=== PATIENT | male | born 1990 | race Caucasian/White ===

== ENCOUNTER → 2017-08-03 | Outpatient (CLI) | payer OTHER ==
--- NOTE | 2017-08-03 08:14 | DIAGNOSTIC IMAGING REPORT ---
LUMBAR SPINE W/O CONTRAST CLINICAL HISTORY: 26 years-old Male with RADICULOATHY, LUMBAR REGION. Subacute low back pain with prior trauma with radicular symptoms of the bilateral lower extremities COMPARISON: None. TECHNIQUE: Multiplanar, multi sequence MRI of the lumbar spine was performed without intravenous contrast. FINDINGS: No focal bone marrow edema, acute fracture or subluxation. 5 mm synovial cyst of the left L3-L4 facet. 6 mm synovial facet is seen adjacent to the left L5-S1 facet. Discogenic degenerative changes seen at L4-L5 and L5-S1 as below. Signal within the spinal cord appears normal. Cauda equina are within normal limits. The imaged paraspinal, intra-abdominal and intrapelvic structures demonstrate no acute abnormality. No pathologic adenopathy or aortic aneurysm identified. T12-L1: No central canal or neural foraminal stenosis. L1-L2: No central canal or neural foraminal stenosis. L2-L3: No central canal or neural foraminal stenosis. L3-L4: Mild intervertebral disc space narrowing with disc desiccation. No central canal or foraminal narrowing. L4-L5: Mild intervertebral disc space narrowing with disc desiccation. Small circumferential annular disc bulge is noted in conjunction with superimposed right paracentral/right lateral recess disc extrusion which measures 1.4 x 0.6 x 1.3 cm in transverse, AP and craniocaudal dimensions respectively. This extends 3 mm superior to the inferior endplate of L4, abutting and displacing the right L5 nerve root and causes mild central canal, severe right lateral recess and mild bilateral foraminal narrowing. L5-S1: Mild intervertebral disc space narrowing with disc desiccation. Small posterior disc bulge with annular fissure and broad-based central disc protrusion which flattens the ventral thecal sac and contributes to mild bilateral foraminal narrowing. No significant central canal stenosis. IMPRESSION: 1. Discogenic degenerative changes at L4-L5 with small circumferential annular disc bulge and right paracentral/right lateral recess extrusion causes mild central canal, severe right lateral recess and mild bilateral foraminal narrowing abutting and displacing the right L5 nerve root. 2. Small posterior disc bulge with annular fissure and broad-based central disc protrusion at L5-S1 contributes to mild bilateral foraminal narrowing without significant central canal stenosis. 3. Mild intervertebral disc space narrowing with disc desiccation at L3-L4. The above report was generated using voice recognition software. It may contain grammatical, syntax or spelling errors. Electronically signed by: Baljeet Pace M.D. 08/03/2017 8:13 AM Dictated Date/Time: 08/03/2017 8:01 AM
== END | disposition home or self-care (01) ==
LOC: C.MRI 07:26
PROVIDERS: ATTEND Family Medicine
DX: M54.16 Radiculopathy, lumbar region (principal)

== ENCOUNTER → 2017-09-07 | Day surgery (SDC) | payer OTHER, BC ==
[2017-08-21 12:54] VITALS: Ht 182.9 cm; Wt 104.5 kg
[~2017-09-07] VITALS: Ht 182.9 cm; Wt 104.5 kg
[~2017-09-07] MED LIST: IOPAMIDOL INJ 61% 15 ML VIAL ONE; LIDOCAINE HCL 1% MPF 5 ML VIAL ONE; MULT-506 PO; SODIUM CHLORIDE 0.9% INJ 10 ML VIAL ONE
--- NOTE | 2017-09-07 13:05 | History & Physical Bridge - SC ---
H&P Re-Evaluation Bridge Note: I have examined the patient, reviewed the History & Physical and in the interval since the performance of the History & Physical I have noted the following changes of clinical significance: No changes noted
--- NOTE | 2017-09-07 13:21 | [facility] Post Operative Brief Note ---
Immediate Operative Summary Operative Date Sep 07, 2017. Pre-Operative Diagnosis RIGHT LUMBAR RADICULITIS NOT RESPONDING TO PHYSICAL THERAPY OR MEDS Post-Operative Diagnosis RIGHT LUMBAR RADICULITIS NOT RESPONDING TO PHYSICAL THERAPY OR MEDS Procedure(s) Performed LUMBAR EPIDURAL STEROID INJECTION Surgeon DR. Jose Elias BURNET[employer] Surgeon(s) None Estimated Blood Loss NONE Findings Consistent with Post-Op Diagnosis Specimens None Drains None Anesthesia Type Local Complication(s) none Disposition Disposition:
--- NOTE | 2017-09-07 13:22 | Discharge Instructions ---
Discharge Instructions Date of Service Sep 07, 2017. Visit Reason for Visit: Lumbar Radiculopathy Discharge Discharge Diagnosis / Problem: right leg pain Discharge Goals Goal(s): Decrease discomfort, Improve function Activity Recommendations Activity Limitations: resume your previous activity Anesthesia . Post Anesthesia Instructions: If you have had General Anesthesia or IV Sedation: * Do not drive today. * Resume driving when surgeon permits. * Do not make important decisions or sign legal documents today. * Call surgeon for: 1. Temperature elevations greater than 101 degrees F. 2. Uncontrollable pain. 3. Excessive bleeding. 4. Persistent nausea and vomiting. 5. Medication intolerance (nausea, vomiting or rash). * For nausea and vomiting use only clear liquids such as: tea, soda, bouillon until nausea subsides, then gradually increase diet as tolerated. * If you have any concerns or questions, call your surgeon's office. If physician is unavailable and it is an emergency, call 911 or go to the nearest emergency room. . Diet Recommendations Recommended Home Diet: resume previous diet Procedures Procedures Performed: LUMBAR EPIDURAL STEROID INJECTION Pending Studies Studies pending at discharge: no Medical Emergencies . Who to Call and When: Medical Emergencies: If at any time you feel your situation is an emergency, please call 911 immediately. . Non-Emergent Contact Non-Emergency issues call your: Specialist . . "Provider Documentation" section prepared by Tino Fernandez. .
[2017-09-07 13:39] VITALS: BP 135/75; PULSE 78; O2SAT 97
--- NOTE | 2017-09-07 14:17 | OPERATIVE REPORT ---
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 POSTOPERATIVE DIAGNOSIS: Same. PROCEDURE: Right paramedian L5-S1 intralaminar epidural steroid injection under fluoroscopic guidance. 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 He has failed conservative treatment and presents today for a lumbar epidural steroid injection. PHYSICAL EXAMINATION: The patient has a loss of normal lumbar lordosis. He has soreness to palpation bilaterally, increased pain with flexion and has radicular symptoms down the right leg. CONSENT: Verbal and written consent was obtained from the patient. Risks and benefits were reviewed. Risks include but are not limited to epidural abscess, epidural hematoma, allergic reaction, dural puncture. The patient wishes to proceed. DESCRIPTION OF PROCEDURE: The patient was taken back to the special procedures room of the [facility] where he was maintained in a prone position. Backside was cleansed with Betadine x3 and a dry sterile dressing was applied. Fluoroscope was used to identify the L5-S1 intralaminar space. Overlying skin on the right side was anesthetized with 4 mL of lidocaine 1% with a 25-gauge 1.5-inch needle. A 22-gauge 3.5-inch Tuohy needle was then directed towards the intralaminar space and advanced under lateral fluoroscopic guidance. Loss of resistance was noted at a depth of 7.5 cm. Isovue-300 contrast of 1 mL demonstrated epidural uptake pattern, which was confirmed with both AP and lateral views. He then underwent injection after negative aspiration of 40 mg of Depo-Medrol, 4 mL of preservative free sodium chloride slowly as he had reproduction of radicular symptoms down the leg. DISPOSITION: 1. The patient is taken out into the discharge recovery area where he will be discharged home once discharge criteria have been met. 2. Follow up in the [facility] office in 4 weeks' time. I attest to the content of the Intraoperative Record and any orders documented therein. Any exceptions are noted below. FRANCY
== END | disposition home or self-care (01) ==
LOC: X.SURG 12:39
PROVIDERS: ATTEND Physical Medicine & Rehabilitation
DX: M51.16 Intervertebral disc disorders with radiculopathy, lumbar region (principal)